=== PATIENT | female | born 1980 | race Caucasian/White ===

== ENCOUNTER 2016-11-10 20:09 | Emergency (ER) | payer OTHER ==
[~2016-11-10] VITALS: Ht 162.6 cm; Wt 113.4 kg
--- NOTE | ~2016-11-10 | CT2 ---
[facility] A Service of [facility] RADIOLOGY TEXT RESULTS PATIENT: BRANDY NAZARIO LOCATION: SED : 78 UNIT #: [id number] AGE: [address]: JORGE LÓPEZ SEX: F ORDER DR: [id number] [place] [id number] MR#: [id number] Acc #: [id number] NAME: BRANDY NAZARIO. : 1980 SEX: F STUDY DATE/TIME: 11/11/2016 00:08 UNIT: SED ROOM: STUDY DESCRIPTION: CT Abd and Pelv W Cont Attending Physician: Jorge López R.N. Ordering Physician: Physician Non-Staff Primary Care Physician: No Primary Care Physician MEDICAL IMAGING REPORT This report is preliminary unless electronic signature is present. EXAM CT abdomen and pelvis 11/11 at 00:08 hours. INDICATIONS Low back pain radiating to the right leg for the last 3 weeks. TECHNIQUE Axial images were obtained through the abdomen and pelvis following IV contrast administration. Multiplanar reformats were obtained. This CT exam was performed with one or more of the following radiation dose reduction techniques: automatic exposure control, adjustment of mA and/or kV according to patient size, and iterative reconstruction. COMPARISON No comparison. FINDINGS Abdomen: Infiltrates are noted in the right lower lobe, somewhat nodular. This is concerning for pneumonia. There is subcarinal adenopathy measuring about 3.5 x 2.2 cm. These findings are nonspecific. The gallbladder is surgically absent. No biliary obstruction. Solid abdominal organs are normal. Unopacified GI tract is normal. No adenopathy is seen. There is no free fluid. Pelvis: The appendix is normal. The remainder of the unopacified GI tract is normal as well. Solid pelvic organs unremarkable. Urinary bladder is normal. IMPRESSION 1. There is infiltrate in the right lower lobe which is somewhat nodular. This likely reflects pneumonia. However, there is a large subcarinal lymph node. While this may be reactive, this certainly raises the [facility] A Service [facility][1] RADIOLOGY TEXT RESULTS PATIENT: BRANDY NZAARIO LOCATION: [facility] [place] : [birth year] UNIT #: [id number] AGE: [address]: JORGE LÓPEZ SEX: F ORDER DR: possibility of potential neoplasm. I would recommend a followup chest CT after therapy is completed. There is no adenopathy in the abdomen or pelvis. 2. Unopacified GI tract including the appendix is within normal limits. 3. Cholecystectomy. 3. Normal nonobstructed kidneys. 5. Normal alignment of the lumbar spine. No fractures are seen. No focal disc herniations are identified. Dictated by... Missael Coe Jr., M.D. THIS IS AN ELECTRONICALLY VERIFIED REPORT Missael Coe Jr., M.D. at 11/11/2016 9:16 PM EDIE/valentino TD: 11/11/2016 14:35 JOB #: [id number] MEDICAL IMAGING REPORT Page 1 of 1
[~2016-11-10 20:09] MED LIST: BACTRIM DS TABL1 TA1 PO; CIPRO PO; FLEXERIL PO; HYDROCODON-ACE1 EAC9 PO; KEFLEX500 M1 PO; LORAZEPAM1 MG PO; MOTRIN400 M1; NO MEDICATIONS; ULTRAM PO; VICODIN 5/1 TAB 5/50 PO; VICODIN 5/500 T1 TAB PO; VOLTAREN75 MG PO
[2016-11-10 22:39] LABS: URINE SOURCE CLEAN CATCH
[2016-11-10 22:42] LABS: URINE APPEARANCE HAZY; URINE BILIRUBIN NEG (NEG); URINE BLOOD NEG (NEG); URINE COLOR YELLOW; URINE GLUCOSE NEG (NORM); URINE KETONE NEG (NEG); URINE LEUKOCYTE ESTERASE 1+ (NEG); URINE NITRATE NEG (NEG); URINE PROTEIN NEG (NEG); URINE SPECIFIC GRAVITY 1.025 (1.003-1.035); URINE UROBILINOGEN 0.2 MG/DL (NORM)
[2016-11-10 22:44] LABS: MICRO INDICATED? YES
[2016-11-10 22:54] LABS: CULTURE INDICATED? YES; URINE BACTERIA 1+ (NEG); URINE MUCUS PRESENT; URINE SQUAMOUS EPITHELIAL CELL MODERATE /[HPF]; URINE TRANSITIONAL EPI CELLS FEW /[HPF]
[2016-11-10 23:30] LABS: BASOPHIL# 0.1 X10e3 (0-0.3); BASOPHIL% 0.8 % (0-2.5); EOSINOPHIL# 0.2 X10e3 (0-0.7); EOSINOPHIL% 2.5 % (0.0-7.0); HEMATOCRIT 35.9 % (35.0-45.0); HEMOGLOBIN 12.1 gm/dL (12.0-16.0); LYMPHOCYTE# 2.2 X10e3 (1.0-3.5); LYMPHOCYTE% 29.2 % (17.0-45.0); MEAN CELL VOLUME 89.7 FL (83-96); MEAN CORPUSCULAR HEMOGLOBIN 30.2 PG (28-34); MEAN CORPUSCULAR HGB CONC 33.6 g/dL (30-36); MEAN PLATELET VOLUME 8.6 FL (6.5-11.5); MONOCYTE# 0.9 X10e3 (0-1.0); MONOCYTE% 12.4 % (3.0-12.0); NEUTROPHIL# 4.1 X10e3 (1.5-7.1); NEUTROPHIL% 55.1 % (40-75); PLATELET COUNT 246 X10e3 (140-420); RED CELL DISTRIBUTION WIDTH 14.1 % (11.0-15.5); WHITE BLOOD COUNT 7.5 X10e3 (4.0-10.5)
[2016-11-10 23:31] LABS: DIFF IND NO
[2016-11-10 23:45] LABS: BUN/CREATININE RATIO 37.14; CALCIUM SERUM 8.7 mg/dL (8.4-10.2); CREATININE SERUM 0.7 mg/dL (0.6-1.4); GLOM FILT RATE Estimated 110.7 mL/min (>60); POTASSIUM 4.2 mmol/L (3.5-5.1)
== END 2016-11-11 02:14 | disposition home or self-care (01) ==
LOC: SED 20:09
PROVIDERS: Nurse Practitioner
DX: S39.012A Strain of muscle, fascia and tendon of lower back, initial encounter (principal); S76.011A Strain of muscle, fascia and tendon of right hip, initial encounter; Z90.49 Acquired absence of other specified parts of digestive tract; W10.9XXA Fall (on) (from) unspecified stairs and steps, initial encounter; Y92.009 Unspecified place in unspecified non-institutional (private) residence as the place of occurrence of the external cause
CPT/HCPCS: 36415; 74177; 80048; 81003; 82270; 84703; 85025; 87086; 96374; 99284; J1885; Q9967